=== PATIENT | female | born 1995 | race Caucasian/White ===

== ENCOUNTER → 2022-08-24 12:00 | Outpatient (CLI) | payer MEDICAID, SELFPAY ==
[2022-08-24 18:29] LABS: Basophils # 0.1 K/mm3 (0-0.2); Basophils % 0.6 % (0.1-2.0); Eosinophils # 0.2 K/mm3 (0.0-0.4); Eosinophils % 2.8 % (0.1-12.0); Hemoglobin 11.8 g/dL (12.2-16.2); Lymphocytes # 2.4 K/mm3 (0.7-4.5); Lymphocytes % 28.2 % (10-50); Mean Corpuscular HGB Conc 31.2 g/dL (31.8-35.4); Mean Corpuscular Volume 83.5 fl (81-99); Mean Platelet Volume 9.7 fl (7.4-10.4); Monocytes # 0.4 K/mm3 (0.1-1.0); Neutrophils # 5.3 K/mm3 (1.8-7.8); Neutrophils % 63.5 % (37.0-80.0); Platelet Count 437 K/mm3 (142-424); Red Blood Count 4.55 M/mm3 (4.20-5.40); Red Cell Distribution Width 16.6 % (11.5-17.5); White Blood Count 8.4 K/mm3 (4.8-10.8)
[2022-08-24 18:54] LABS: Alanine Aminotransferase 15 U/L (12-78); Albumin Level 4.1 g/dl (3.5-5.0); Albumin/Globulin Ratio 1.5 (1.1-1.8); Alkaline Phosphatase 67 U/L (38-126); Anion Gap 11.7 mEq/L (5-15); Aspartate Amino Transferase 18 U/L (14-36); Bilirubin,Total 0.3 mg/dl (0.2-1.3); Blood Urea Nitrogen 14 mg/dl (7-17); Calcium 8.8 mg/dl (8.4-10.2); Carbon Dioxide 23 mmol/L (22.0-30.0); Chloride 109 mmol/L (98-107); Estimated Glomerular Filt Rate 100 ml/min (>60); GFR (African American) 121 ML/MIN (>60); Globulin 2.8 g/dL (1.3-3.2); Glucose 83 mg/dl (74-100); Potassium 4.7 mmoL/L (3.5-5.1); Sodium 139 mmol/L (136-145); Total Protein,Serum 6.9 g/dl (6.3-8.2)
[2022-08-24 19:09] LABS: 25-OH Vitamin D, Total 14.3 ng/mL (30-100)
[2022-08-24 19:22] LABS: Thyroid Stimulating Hormone 2.55 uIU/mL (0.465-4.68)
== END ==
PROVIDERS: PCP Nurse Practitioner Family; Visit Provider Nurse Practitioner Family
DX: Z00.00 Encounter for general adult medical examination without abnormal findings (principal); R53.83 Other fatigue; E55.9 Vitamin D deficiency, unspecified
CPT/HCPCS: 80053; 82306; 84443; 85025

== ENCOUNTER 2023-08-29 10:46 | Outpatient (CLI) | payer MEDICAID, SELFPAY ==
--- OUTSIDE RECORDS SUMMARY | 2023-08-29 10:49 | XMS_ITS | Continuity of Care Document ---
Author Name Unknown Address [address], [place] [id number] Organization [facility] Phone Care Team Providers Care Car Carder Name Role Phone ASIYA REED Primary Care FREDA COTO Unavailable FREDA COTO Admitting FREDA COTO Primary Attending ALLERGIES AND ADVERSE REACTIONS ALLERGIES AND ADVERSE REACTIONS Code System Allergy Substance Adverse Reaction Date Reaction (Severity) Comment Status Reported By Updated By No Known Allergies [id number] on August 28, 2023 5:01:57 PM [facility] TREATMENT PLAN DISCHARGE MEDICATIONS Status RXNORM Medication Dose Route Frequency Dates Comments U pdated By Patient discharge medication information is not available. PATIENT OPEN ORDERS Code System Description Frequency Occurrences Priority [place] [address] [facility] Hip - left X-ray 2 views ONE TIME 0 Stat August 28, 2023 5:06:00 PM [facility] NNAMDI BARBA MD [id number] on August 28, 2023 5:41:00 PM [facility] SCHEDULED PROCEDURES Code System Description Status Scheduled Date Upd ated By Patient scheduled procedure information is not available. MEDICATIONS HOME MEDICATIONS Status RXNORM NDC Medication Dose Route Frequency Dates Comments Reported By Updated By Drug Treatment Unknown DISCHARGE MEDICATIONS Status RXNORM NDC Medication Dose Route Frequency Dates Comments Physician Updated By No Discharge Medication Info rmation Available INPATIENT MEDICATIONS Status RXNORM NDC Medication Dose Route Frequency Rat e Quantity Dates Comments Physician Updated By [facility] [id number] PERCOCET 5-325 MG TABS 1.0 TAB BY MOUTH ONE TIME ONLY Start: August 28, 2023 5:27:0 0 PM UTC End: August 28, 2023 5:27:0 0 PM [facility] NNAMDI BARBA MD INTERFAC ED on August 28, 2023 5:25:00 PM UTC Discc[facility] [id number] ibuprofen (MOTRIN) 400 MG TABS 400.0 MG BY MOUTH ONE TIME ONLY Start: August 28, 2023 5:27:0 0 PM UTC End: August 28, 2023 5:27:0 0 PM UTC [facility] FREDA SKELTON INTERFAC ED on August 28, 2023 5:25:00 PM UTC SOCIAL HISTORY SOCIAL HISTORY SNOMED-CT Social History Element Description Effective Dates Offered Cessation Comment UpdatedBy [id number] Smoking Status Unknown If Ever Smoked SOCIAL HISTORY - Gender Sex: Female SOCIAL HISTORY - Status : status i nformation is not available Intention in Next Year: intention information is not available SOCIAL HISTORY - Sexual Behavior Sexual Orientation Gender Identity SNOMED-CT Description SNO MED -CT Description Activity Level No of Partners Partner Type UpdatedBy Information is not available VITAL SIGNS PATIENT VITAL SIGNS This section displays the mo st recent value for each vital sign as of August 28, 2023 6:57:09 PM [place] Loinc Code Vital Sign Activity Date Result Updated By 8310-5 Body temperature August 28, 2023 4:57:00 PM UTC 97.7 [degF] [id number] on August 28, 2023 5:00:[place] [address] Body weight Measured August 27 5:00:48 PM UTC 81.19 kg (179.0 lb) [id number] on August 28, 2023 5:00:48 PM UT 8462-4 Diastolic blood pressure August 28, 2023 5:45:00 PM UTC 65.0 mm[Hg] [id number] on August 28, 2023 5:56:02 PM UT 8867-4 Heart rate August 28, 2023 5:47:00 PM UTC 68 /min [id number] on August 28, 2023 5:56:[place] [address]-8 Oxygen saturation in Arterial blood by Pulse oximetry August 28, 2023 5:47:00 PM UTC 100.0 % [id number] on August 28, 2023 5:56:03 PM UT 9279-1 Respiratory rate August 28, 2023 5:47:00 PM UTC 17 /min [id number] on August 28, 2023 5:56:03 PM UTC 8480-6 Systolic blood pressure August 28, 2023 5:45:00 PM UTC 108.0 mm[Hg] [id number] on August 28, 2023 5:56:02 PM [place] PEDIATRIC GROWTH CHART - VITAL SIGNS This section displays Head C ircumference Percentile, Weight for Length Percentile and BMI Percentile Loinc Code Pediatric Measure Age (Months) Result Updat ed By No Pediatric Growth Chart Pe rcentile Information Available. HEALTH CONCERNS Problems Concern Status Health Concern problem infor mation not available. Smoking Status Status Years Used Consumed packs p er day Health Concern smoking histo ry information not available. Family History Concern Status Health Concern family histor y information not available. ENCOUNTERS ENCOUNTER INFORMATION Reason for Visit LEG PAIN Admission August 28, 2023 4:53:[address] [address] Discharge August 28, 2023 5:57:00 PM [place] DIS CHARGED TO HOME OR SELF CARE ENCOUNTER DIAGNOSES Notes information is not lapa ilable. Code System Diagnosis Onset Date Diagnosis information is not available. ABSTRACT DIAGNOSES Code System Diagnosis Updated By Abstract Diagnosis informati on is not available. CARE TEAM Care Car Carder Role ASIYA REED Primary Care FREDA COTO Referring FREDA COTO Admitting FREDA COTO Primary Attending CARE TEAM CARE plastic process technician Role on Team Status Start Date End Date Update d By NNAMDI BARBA MD Referring normal August 28, 2023 5:25:47 PM UTC August 28, 2023 5:57:00 PM [place] [id number] on August 28, 2023 5:25:47 PM [facility] NNAMDI BARBA MD Attending normal August 28, 2023 5:25:47 PM UTC August 28, 2023 5:57:00 PM UT [id number] on August 28, 2023 5:25:47 PM [facility] NNAMDI BARBA MD Admitting normal August 28, 2023 5:25:47 PM UTC August 28, 2023 5:57:00 PM UT [id number] on August 28, 2023 5:25:47 PM [facility] DEREK BRADEN APRN PCP normal August 28, 2023 4:53:48 PM UTC August 28, 2023 5:57:00 PM [place] [id number] on August 28, 2023 5:25:47 PM [facility]
--- NOTE | 2023-08-29 10:54 | XR_ITS ---
FINAL REPORT CLINICAL HISTORY: Pain, no known injury COMPARISON: None FINDINGS: SACRUM COCCYX 2 views demonstrate no acute fracture or dislocation. The sacral arches are intact. The sacroiliac joints are unremarkable. No soft tissue abnormality is seen. IMPRESSION: No acute process. Reviewed, Interpreted and Dictated by Jayme Bhatti III, MD Transcribed by Rita Moreau Authenticated and . [facility]
--- NOTE | 2023-08-29 10:54 | XR_ITS ---
FINAL REPORT CLINICAL HISTORY: pain in pelvis, hip COMPARISON: None FINDINGS: SINGLE VIEW PELVIS: A single view of the pelvis was obtained. There is no acute fracture or dislocation. Visualized joint spaces are normally aligned. Soft tissues are unremarkable. There is postoperative change of the left pelvis. IMPRESSION: No acute bony abnormality. Reviewed, Interpreted and Dictated by Jayme Bhatti III, MD Transcribed by Rita Moreau Authenticated and [facility]
== END 2023-08-29 23:59 | disposition home or self-care (01) ==
LOC: RAD 10:48
PROVIDERS: PCP Nurse Practitioner Family; Visit Provider Family Medicine
DX: M25.552 Pain in left hip (principal); M53.3 Sacrococcygeal disorders, not elsewhere classified
CPT/HCPCS: 72190; 72220

== ENCOUNTER 2023-09-10 16:29 | Outpatient (CLI) | payer MEDICAID, SELFPAY ==
--- OUTSIDE RECORDS SUMMARY | 2023-09-10 16:31 | XMS_ITS | Continuity of Care Document ---
Author Name Unknown Address [address] [place] [id number] Organization [facility] Phone Care Team Providers Care [employer] Safety Program Coordinator Name Role Phone ASIYA REED Primary Care FREDA COTO Unavailable FREDA COTO Admitting FREDA COTO Primary Attending [phone] ALLERGIES AND ADVERSE REACTIONS ALLERGIES AND ADVERSE REACTIONS Code System Allergy Substance Adverse Reaction Date Reaction (Severity) Comment Status Reported By Updated By No Known Allergies [id number] on August 28, 2023 5:01:[address] [facility] RESULTS Patient: GABBY Ng Date of : September 24 0 LABORATORY RESULTS Information is not available LABORATORY NARRATIVE RESULTS Information is not available RADIOLOGY RESULTS ORDER 100: HIP LT 2V (LOINC: 22543-5) ORDER DATE: August 28, 2023 5:06:[address] [facility] PERFORMING LAB: [address] [id number] Final Result Date: August 28, 2023 7:23:[address] [address] Name: PATEL PIERRE Exam Date: 08/28/2023 : 1995 Age 27 years Gender: F Physician: FREDA COTO Facility: [facility] Facility HSV: Outpatient Exam: HIP LT 2V LEFT HIP SERIES HISTORY: Acute left hip pain. COMPARISON: None. FINDINGS: 2 views of the left hip were performed. There is no acute, displaced fracture or dislocation of the visualized bony structures. Joint spaces are normal. No soft tissue abnormality is identified. IMPRESSION: No acute process. The films were reviewed, interpreted, and dictated by Dr. Gunderson Transcribed by Tata Arriaga PA-C Dictated By: CONSTANTINO GUNDERSNO Transcribed By: CONSTANTINO GUNDERSON Transcribed On: 08/28/2023 3:23 PM Electronically signed by: CONSTANTINO GUNDERSON 08/28/2023 Thank you for referring PATEL PIERRE to [facility]. Legally authenticated by POPE CONSTANTINO Granados DO 2023-08-28 15:23:08 PATHOLOGY NARRATIVE RESULTS Information is not available MICROBIOLOGY RESULTS No Micro Labs/Results Exist for Patient BLOOD ADMIN RESULTS Information is not available MEDICATIONS HOME MEDICATIONS Status RXNORM NDC Medication Dose Route Frequency Dates Comments Reported By Updated By Drug Treatment Unknown DISCHARGE MEDICATIONS Status RXNORM NDC Medication Dose Route Frequency Dates Comments Physician Updated By No Discharge Medication Info rmation Available INPATIENT MEDICATIONS Status RXNORM NDC Medication Dose Route Frequency Rat e Quantity Dates Comments Physician Updated By Trent inued [id number] PERCOCET 5-325 MG TABS 1.0 TAB BY MOUTH ONE TIME ONLY Start: August 28, 2023 5:27:0 0 PM UTC End: August 28, 2023 5:27:0 0 PM UTC NNAMDI BARBA MD INTERFAC ED on August 28, 2023 5:25:00 PM [place] Discont inued [id number] ibuprofen (MOTRIN) 400 MG TABS 400.0 MG BY MOUTH ONE TIME ONLY Start: August 28, 2023 5:27:0 0 PM UTC End: August 28, 2023 5:27:0 0 PM UTC NNAMDI BARBA MD INTERFAC ED on August 28, 2023 5:25:00 PM [place] SOCIAL HISTORY SOCIAL HISTORY SNOMED-CT Social History Element Description Effective Dates Offered Cessation Comment UpdatedBy [id number] Smoking Status Unknown If Ever Smoked SOCIAL [...] for each vital sign as of August 30, 2023 7:29:32 AM UTC Loinc Code Vital Sign Activity Date Result Updated By 8310-5 Body temperature August 28, 2023 4:57:59 PM UTC 97.7 [degF] [id number] on August 29, 2023 5:57:23 PM UTC 17720-2 Body weight Measured August 28 5:57:25 PM UTC 81.193 kg (179.0 lb) [id number] on August 29, 2023 5:57:25 PM UTC 8462-4 Diastolic blood pressure August 28, 2023 5:45:00 PM UTC 65.0 mm[Hg] [id number] on August 29, 2023 5:57:24 PM UTC 8867-4 Heart rate August 28, 2023 5:47:00 PM UTC 68 /min [id number] on August 29, 2023 5:57:25 PM UTC 86016-5 Oxygen saturation in Arterial blood by Pulse oximetry August 28, 2023 5:47:00 PM UTC 100.0 % [id number] on August 29, 2023 5:57:25 PM UTC 9279-1 Respiratory rate August 28, 2023 5:47:00 PM UTC 17 /min [id number] on August 29, 2023 5:57:25 PM UTC 8480-6 Systolic blood pressure August 28, 2023 5:45:00 PM UTC 108.0 mm[Hg] [id number] on August 29, 2023 5:57:24 PM UTC PEDIATRIC GROWTH CHART - VITAL SIGNS This [...] PAIN Admission August 28, 2023 4:53:00 PM UTC [address] [address] Discharge August 28, 2023 5:57:00 PM UTC DIS CHARGED TO HOME OR SELF CARE ENCOUNTER DIAGNOSES Notes information is not alpa ilable. Code System Diagnosis Onset Date Diagnosis information is not available. ABSTRACT DIAGNOSES Code System Diagnosis Updated By M79.605 ICD10 PAIN IN LEFT LEG [id number] on August 30, 2023 7:28:58 AM UTC M25.552 ICD10 PAIN IN LEFT HIP [id number] on August 30, 2023 7:28:58 AM UTC S76.012A ICD10 STRAIN OF MUSCLE , FASCIA AND TENDON OF LEFT HIP, INITIAL ENCOUNTER [id number] on August 30, 2023 7:28:58 AM UTC Z72.0 ICD10 TOBACCO USE [id number] on August 30, 2023 7:28:58 AM UTC X50.1XXA ICD10 OVEREXERTION FRO M PROLONGED STATIC OR AWKWARD POSTURES, INITIAL ENCOUNTER [id number] on August 30, 2023 7:28:58 AM UTC Y92.009 ICD10 UNSPECIFIED PLAC E IN UNSPECIFIED NON-INSTITUTIONAL (PRIVATE) RESIDENCE THE PLACE OF OCCURRENCE OF THE EXTERNAL CAUSE [id number] on August 30, 2023 7:28:58 AM UT CARE TEAM Care [employer] Safety Program Coordinator Role ASIYA REED Primary Care FREDA COTO [facility] Admitting [facility] LEROY Primary Attending CARE TEAM CARE control and recovery special tactics Role on Team Status Start Date End Date Update d By NNAMDI BARBA MD Referring normal August 28, 2023 5:25:47 PM UT August 28, 2023 5:57:00 PM UT [id number] on August 28, 2023 5:25:47 PM UT NNAMDI BARBA MD Attending normal August 28, 2023 5:25:47 PM UTC August 28, 2023 5:57:00 PM UT [id number] on August 28, 2023 5:25:[address] [facility] NNAMDI BARBA MD Admitting normal August 28, 2023 5:25:47 PM UT August 28, 2023 5:57:00 PM UT [id number] on August 28, 2023 5:25:[address] [facility] DEREK BRADEN APRN PCP normal August 28, 2023 4:53:48 PM UT August 28, 2023 5:57:00 PM UT [id number] on August 28, 2023 5:25:47 PM UT
--- NOTE | 2023-09-10 16:45 | MR_ITS ---
PROCEDURE INFORMATION: Exam: MR Left Lower Extremity Joint Without and With Contrast; Hip Exam date and time: 09/10/2023 5:49 PM Age: 27 years old Clinical indication: Pain; Hip; Left; Additional info: Hip pain TECHNIQUE: Imaging protocol: Magnetic resonance imaging of the left lower extremity joint without and with contrast. Exam focused on the hip. Sequences: Coronal and axial large field of view sequences include the pelvis and both the left and right hips. Additional sequences are focused on the symptomatic hip. Contrast material: PROHANCE; Contrast volume: 17 ml; Contrast route: IV; COMPARISON: 1. CR XR COCCYX 2V 08/29/2023 11:04 AM 2. CR XR PELVIS MIN 3V 08/29/2023 11:04 AM FINDINGS: Limitations: The unusually large 45 cm [id number] utilized to image the entire pelvis through proximal femoral diaphyses on axial and coronal images results in proportionally lower anatomic detail. The axial and coronal series do not cross reference to the sagittal series. Bones/joints: There is no acute fracture or dislocation. No aggressive bone lesions are present. There is no significant degenerative change. A benign synovial herniation pit is present in each femoral neck. A minimal amount of edema is present along the anterior left sacroiliac joint (series 5/image 26). Labrum: Assessment of the left hip labrum is significantly limited due to the very large [id number]-[id number] utilized on the majority of the series. There is a possible anterosuperior left hip labral tear. Consider dedicated small ngtwr-yr-lzyd MR arthrogram of the left hip for further evaluation if surgery would be considered for a hip labral tear. TENDONS: Tendons of iliopsoas group: Unremarkable. No evidence of tear. Tendons of medial compartment of thigh: Unremarkable. No evidence of tear. Tendons of lateral rotators of hip: Unremarkable. No evidence of tear. Tendons of gluteal group: Unremarkable. No evidence of tear. Soft tissues: Unremarkable. Reproductive: A thick wall left ovarian cyst measures 1.5 cm suggesting a corpus luteum cyst that does not require follow-up. IMPRESSION: Limited assessment of the left hip labrum with a possible anterosuperior left hip labral tear. Consider dedicated small yztmk-oj-ftjo MR arthrogram of the left hip for further evaluation if surgery would be considered for a hip labral tear.
[2023-09-10] MEDS: SODIUM CHLORIDE 0.9% 10ML SYR (RAD ONLY) 10 ML IV (18:47)
[2023-09-10] MEDS: GADOTERIDOL INJ 20ML SYRINGE 17 ML IV (18:47)
== END 2023-09-10 23:59 | disposition home or self-care (01) ==
LOC: RAD 16:30
PROVIDERS: PCP Nurse Practitioner Family; Visit Provider Family Medicine
DX: M25.552 Pain in left hip (principal); R20.0 Anesthesia of skin; R20.2 Paresthesia of skin
CPT/HCPCS: 73723; A9576

== ENCOUNTER 2023-09-24 08:00 | Outpatient (RCR) | payer BC, MEDICAID, SELFPAY ==
--- NOTE | 2023-09-10 12:58 | HMH.PTOPEV ---
PT Outpatient Evaluation Rehab PT Outpatient Evaluation Start: 09/10/23 10:57 Freq: Status: Active Protocol: Document 09/10/23 10:57 ESPINOZA (Rec: 09/10/23 12:58 ESPINOZA [id number]) E-signed By Krystle Abbott, PT Outpatient Therapy Subjective History Subjective History Pt is a 27 y/o female who reports insidious onset of coccyx pain ~2 months ago. Pt denies known trauma or injury. Pt reports pain only occurs with prolonged sitting and sit to stand transfers. Pt also reports onset of LLE pain ~2 weeks ago when she bent down to put her 3 y/o son in bed and heard a pop of her L hip . Pt states she had immediate onset of L posterior leg tingling and numbness of the last 3 digits of her foot. Pt reports this seems to be worse with prolonged sitting and improves with standing/walking . Pt also reports this is worse with pivoting/twisting on the L leg. Pt reports paresthesia is constant in nature but intensity does fluctuate. Pt denies b/b dysfunction or saddle anesthesia. Pt had a coccyx and pelvis xray on 08/29/23 with impression of no acute process, no acute bony abnormality. Pt reports she is having a MRI of her L hip this evening at [facility]. Pt had an injection in her L hip on 12/11 with temporary improvement in symptoms. Pt denies further comorbidities. Occupation: [employer] New diagnosis of cancer in past 12 No months? Chief Complaint Pain Symptom Type Sharp,Numbness,Tingling Symptoms Relieved By Heat Symptoms Aggravated By Sitting,Twisting,Sneeze/ Coughing Current Functional Limitations Standing,Sitting Symptom Description Constant but Variable Level of pain today (0-10) 4 Pain scale - at its best (0-10) 4 Pain scale - at its worst (0-10) 8 Lumbopelvic Eval Palapation tenderness bilateral lumbar spinal tenderness Yes buttock tenderness Yes: L piriformis, glute med/ min Lumbar/Sacral Palpation Findings Tenderness Lumbar/Sacral Palpation Overall Comment coccyx 3/4 TTP Accessory Movement L-spine Vertebrae Accessory Movements Central P/A [place] that Elicit Symptoms L5 bilateral S1 bilateral Range of Motion Lumbar Spine Active Flexion Range of 80 Motion (degrees) Lumbar Spine Active Extension Range of 10 Motion (degrees) Left Lumbar Spine Lateral Flexion Active 15 Range of Motion (degrees) Right Lumbar Spine Lateral Flexion 15 Active Range of Motion (degrees) Manual Muscle Test Left Knee Extension Strength Grade 5 Normal Knee Flexion Strength Grade 5 Normal Hip Flexion Strength Grade 5 Normal Hip Abduction Strength Grade 4 Good Hip Adduction Strength Grade 4 Good Hip Extension Strength Grade 4- Good- Ankle Dorsiflexion Strength Grade 5 Normal DTR Rt Patellar 2+ Lt Patellar 2+ Rt Gastroc/Soleus 2+ Lt Gastroc/Soleus 2+ Altered Sensation Bilateral LE Dermatome Level L5,S1 Comment decreased light touch L compared to R Special Tests Sciatic Nerve Tension Test Negative Right,Positive Left Unilateral Straight Leg Raise (Lasegue) Negative Right,Positive Left Test Hip/Knee Eval Palpation Tenderness left Knee Palpation Overall Comment no TTP noted ROM Hip External Rotation Active Range of 40 Motion (degrees) Hip Internal Rotation Active Range of 40 Motion (degrees) Knee Extension Active Range of Motion ( 0 degrees) Knee Flexion Active Range of Motion ( 120 degrees) Lower Extremity Functional Index Activities Today, do you or would you have any difficulty at all with: a.Any of your usual work, housework or A little bit of difficulty school activities b. Your usual hobbies, recreational or No difficulty sporting activities c. Getting into or out of the bath No difficulty d. Walking between rooms No difficulty e. Putting on your shoes or socks No difficulty f. Squatting No difficulty g. Lifting an object, like a bag of No difficulty groceries from the floor h. Performing light activities around No difficulty your home i. Performing heavy activities around No difficulty your home j. Getting into or out of a car No difficulty k. Walking 2 blocks No difficulty l. Walking a mile No difficulty m. Going up or down 10 stairs (about 1 No difficulty flight of stairs) n. Standing for 1 hour No difficulty o. Sitting for 1 hour Moderate difficulty p. Running on even ground No difficulty q. Running on uneven ground No difficulty r. Making sharp turns while running fast No difficulty s. Hopping No difficulty t. Rolling over in bed No difficulty LEFI Score Lower Extremity Functional Index Score 77 Outpatient Therapy Assessment Impairments Problems/Impairmments Palpation Tenderness,Impaired Range of Motion,Impaired Strength,Impaired Sitting, Impaired Work Activities, Subjective C/O Pain,Impaired Self Care/Self Management Prognosis Rehab Potential Good Clinical Impression Consistent with Diagnosis Yes Short Term Goals Number of Weeks 3 Improve Tolerance to Work Activities Yes: report ability to work a half shift with pain 6/10 or less Decrease Subjective C/O Pain Yes: Improve pain at worst to 6/10 to improve overall QOL Improve Self Care/Self Management Yes Patient to be Ind w/ HEP Yes Play Therapist Goals Number of Weeks 6 Decreased Palpation Tenderness Yes Increase Range of Motion Yes: Improve lumbar & L hip AROM to WNL Increase Strength Yes: Improve LE strength to 4+ 5/ grossly to assist with function Increase Ability to Sit Yes Improve Tolerance to Work Activities Yes: report ability to work a full shift with pain 4/10 or less Decrease Subjective C/O Pain Yes: Improve pain/paresthesia at worst to 4/10 to improve overall QOL Patient to be Ind w/ Advanced HEP Yes Outpatient Therapy Plan of Care Treatment Plan May Include Therapeutic Exercise Including Home Yes Exercise Program Manual Therapy Techniques Yes Neuromuscular Re-education Yes Therapeutic Activities to Return to Yes Previous Functional/Work Level ADL/Self Care Education Yes Mechanical Traction Yes Dry Needling Yes Thermal Modalities Yes Electrical Stimulation Yes Ultrasound/Phonophoresis Yes Iontophoresis Yes Massage Yes Eval/Re-Eval Yes Frequency Times per week 2 Duration Number of Weeks 4-6 Addendums This patient is a candidate for social No or vocational rehab? Patient/Guardian verbally acknowledges Yes understanding of treatment program and consents to further treatment? Patient/Guardian verbally acknowledges Yes understanding of diagnosis, prognosis and goals for treatment? Eval Complexity PT Charges 42578 - Low Complexity Shoulder/Elbow Eval Shoulder Objective Measurements Elbow Objective Measurements PHYSICIAN CERTIFICATION: I certify the specified therapy services for Julia Lind are required, authorized, and reviewed every 30 days.
== END 2023-09-24 08:05 | disposition home or self-care (01) ==
LOC: PT 08:00
PROVIDERS: Visit Provider Family Medicine
DX: M53.3 Sacrococcygeal disorders, not elsewhere classified (principal); M25.552 Pain in left hip; M25.569 Pain in unspecified knee; R20.0 Anesthesia of skin; R20.2 Paresthesia of skin
CPT/HCPCS: 97010; 97014; 97110; 97163; G0283